=== PATIENT | female | born 1995 | race Caucasian/White ===

== ENCOUNTER 2021-03-12 12:00 | Outpatient (RCR) | payer BC, SELFPAY ==
--- NOTE | 2021-03-05 14:30 | HP.PTEVAL ---
Patient's Visit Information LISA OREILLY is a 25 year old F referred to Physical Therapy by DAYAMI Cruz with a diagnosis of mechanical LBP. Date of Evaluation: 03/05/21 Physical Therapist: ROSITA Roberts - Visit Plan Frequency: 1-2x /Week Duration: 6 Weeks Plan: 1-2X/ week for 6 weeks for centralization of symptoms. postural exercises, core stability program with HEP. HEP: press ups with patient sag, PT with abd brace and hip add - Subjective Pt has had back pain for years and remembers it all through college for at least 5 years. The back pain is still there with working out. This summer her pain has been noticably worse and last week was the worst. Getting out of bed would hurt and rolling over in back it would hurt. She has had shooting pain down his R leg this last week. She has just gotten off a steroid pack and it is better. She is also on [id number] and muscle relaxors and they did not help. Her pain is very low on her back and more on the R side. It is a sharp pain in middle of back and just muscle soreness. She sits at work and only works 4-6 hours at a time. 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 It seems to be worse with standing... sitting she will have random pain but mostly with transitions. She points to more sacral pain. She has some tingling twice (did not last long). She does not feel weakness. Pain keeps her up sometimes. Heat helps the soreness. Laying flat on the floor. SHe was doing Yoga to help with core strength and did not notice much of a difference. - Pain LBP Pain Intensity (Out of 10): 1 Pain Intensity Range: 6 - Objective Trunk AROM: flex 100%, EXT 75%, SB B 75%, ROT B 75%. Patella DTR's 2+/3 B. LE MMT: B hip flex 4-/5, B hip abd 4-/5, B knee flex 4-/5, B knee ext 4-/5, bridge ( increase pain and able to do 1/2 normal ROM bridge). Pt is able to walk on heels and toes. Prone Press ups 3 X 10 (pt had less stiffness in her back)... Pt had tenderness on the R side of her LB at approx L4/L5 with rotation mobs. Pt was able instructed in PT with abd bracing - Balance/Special Test Scores Oswestry Low Back Score: 9 - Goals Goal 1:: I HEP/neutral spine core stability program Goal Time Frame: 6-8 Weeks Goal 2:: Sit with upright posture during treatment sessions Goal Time Frame: 4-6 Weeks Goal 3:: Be able to complete ADL's in sitting and standing without increase back pain Goal Time Frame: 6-8 Weeks Goal 4:: Increase overall LE muscle strength (at time of eval: LE MMT: B hip flex 4-/5, B hip abd 4-/5, B knee flex 4-/5, B knee ext 4-/5, bridge ( increase pain and able to do 1/2 normal ROM bridge) Goal Time Frame: 6-8 Weeks - Rehabilitation Potential Rehabilitation Potential: Good - Anticipated Interventions Patient/Client Instruction: Educate patient on: Condition, Plan of Care For the Purpose of:: To decrease pain, To increase ROM, To improve nutrient delivery to tissue, To improve muscle performance and motor function, To improve ability to perform ADL's, To increase tolerance to activity/condition/position, To improve ability of physical actions for home/community/work/leisure, To improve gait and locomotor functions, To improve health of tissue, To decrease soft tissue restriction, To increase flexibility/ROM Therapeutic Exercise to Include: Strength training, Endurance training, Postural training, Flexibilty training, Gait and locomotor training, Neuromotor development, Passive ROM, Active ROM, Dynamic Lumbar Stabilization, Scapular Strength/Stabilization For the Purpose of:: To decrease pain, To increase ROM, To improve nutrient delivery to tissue, To improve muscle performance and motor function, To improve ability to perform ADL's, To increase tolerance to activity/condition/position, To improve performance and independence with ADL's, To improve ability of physical actions for home/community/work/leisure, To improve gait and locomotor functions, To improve health of tissue, To decrease soft tissue restriction, To increase flexibility/ROM, To improve balance, To improve health and function Manual Therapy Techniques to Include: Mobilization, Passive ROM, Soft tissue mobilization For the Purpose of:: To decrease pain, To increase ROM, To improve nutrient delivery to tissue, To improve muscle performance and motor function, To improve ability to perform ADL's, To increase tolerance to activity/condition/position, To improve ability of physical actions for home/community/work/leisure, To improve gait and locomotor functions, To decrease soft tissue restriction, To increase flexibility/ROM, To improve balance, To prevent re-injury IF ES: Yes Cryotherapy (ice pack, ice massage): Yes Thermo therapy (hot pack): Yes Ultrasound (thermal/non thermal): Yes For the Purpose of:: To decrease pain, To increase ROM, To improve nutrient delivery to tissue Thank you for the opportunity to evaluate your patient. For Medicare and Medicare HMO plans, please review the plan of care and approve it. It will need to be FAXED BACK to us at [phone] for Medicare purposes. For Medicare only, by signing this I certify the plan of care. Please let me know if there are questions or concerns regarding this plan of care. Physician Signature: Date:
--- NOTE | 2021-07-02 13:00 | HP.PTDCNRP_ITS ---
LISA OREILLY was seen in my office for initial evaluation on 03/05/21. The following Plan of Care was established for this patient: Initial Frequency: 1-2x /Week Initial Duration: 6 Weeks Patient/Client Instruction: Educate patient on: Condition, Plan of Care For the Purpose of:: To decrease pain, To increase ROM, To improve nutrient delivery to tissue, To improve muscle performance and motor function, To improve ability to perform ADL's, To increase tolerance to activity/condition/position, To improve ability of physical actions for home/community/work/leisure, To improve gait and locomotor functions, To improve health of tissue, To decrease soft tissue restriction, To increase flexibility/ROM Therapeutic Exercise to Include: Strength training, Endurance training, Postural training, Flexibilty training, Gait and locomotor training, Neuromotor development, Passive ROM, Active ROM, Dynamic Lumbar Stabilization, Scapular Strength/Stabilization For the Purpose of:: To decrease pain, To increase ROM, To improve nutrient delivery to tissue, To improve muscle performance and motor function, To improve ability to perform ADL's, To increase tolerance to activity/condition/position, To improve performance and independence with ADL's, To improve ability of physical actions for home/community/work/leisure, To improve gait and locomotor functions, To improve health of tissue, To decrease soft tissue restriction, To increase flexibility/ROM, To improve balance, To improve health and function Manual Therapy Techniques to Include: Mobilization, Passive ROM, Soft tissue mobilization For the Purpose of:: To decrease pain, To increase ROM, To improve nutrient delivery to tissue, To improve muscle performance and motor function, To improve ability to perform ADL's, To increase tolerance to activity/condition/position, To improve ability of physical actions for home/community/work/leisure, To improve gait and locomotor functions, To decrease soft tissue restriction, To increase flexibility/ROM, To improve balance, To prevent re-injury IF ES: Yes Cryotherapy (ice pack, ice massage): Yes Thermo therapy (hot pack): Yes Ultrasound (thermal/non thermal): Yes For the Purpose of:: To decrease pain, To increase ROM, To improve nutrient de livery to tissue This patient was last seen in our office 03/12/21. Pertinent comments regarding their Physical therapy will appear below: Pt was to call in at 2 week radha and let us know if she felt she needed to come back or that her exercises were doing her some good. Pt did not call back and will be discharged at this time. At this point I will be discontinuing this patient from physical therapy. I would be happy to see this patient again in the future if found appropriate by the physician. Thank you! Cindy Velez, ROSITA Balance/Gait/Functional tests - Balance/Special Test Scores Oswestry Low Back Score: 9
== END 2021-03-12 19:00 | disposition home or self-care (01) ==
LOC: PT 12:00
PROVIDERS: Referring Provider Nurse Practitioner; Visit Provider Nurse Practitioner
DX: M54.5 Low back pain (principal)
CPT/HCPCS: 97110; 97161

== ENCOUNTER → 2022-06-09 | Outpatient (CLI) | payer BC, SELFPAY ==
[2022-06-09 08:38] LABS: Absolute Lymphocyte Count 2.66 X10^3/uL (0.83-4.51); Absolute Neutrophil Count 2.3 X10^3/uL (2.0-7.7); Basophil# 0.05 X10^3/uL; Basophil% 0.9 % (0-1); Eosinophil# 0.17 X10^3/uL; Hematocrit 41.5 % (37-47); Hemoglobin 13.5 g/dL (12.0-15.0); Lymphocyte # 2.66 X10^3/ul (0.83-4.51); Lymphocyte % 47.1 % (19-41); Mean Corp Hgb Conc 32.5 g/dL (32-36); Mean Corpuscular Hgb 27.2 pg (27.0-32.0); Mean Corpuscular Volume 83.5 fL (81-99); Mean Platelet Vol. 10.5 fl (6.2-12.0); Monocyte% 8.8 % (0-10); NRBC Flagged by Analyzer 0 % (0-5); Neutrophil # 2.26 X10^3/uL (2.7-7.7); Platelet Count 265 K/mm3 (150-450); RBC Distribution Width CV 13.1 % (11.6-14.6); RBC Distribution Width SD 39.5 fl (35.1-43.9); Red Blood Count 4.97 M/mm3 (4.2-5.4); White Blood Count 5.7 K/mm3 (4.4-11.0)
[2022-06-09 09:32] LABS: Vitamin D,25 Hydroxy 22.3 ng/mL
[2022-06-09 11:12] LABS: Estradiol 107.9 pg/mL; T4 Free Direct 0.96 ng/dL (0.76-1.46); Thyroid Stim Hormone (TSH) 7.61 uIU/mL (0.358-3.74)
[2022-06-13 15:06] LABS: Testosterone Free 1.3 pg/mL (0.0-4.2)
== END | disposition home or self-care (01) ==
LOC: PAVLAB 08:23
PROVIDERS: Referring Provider Nurse Practitioner Women's Health; Visit Provider Nurse Practitioner Women's Health
DX: Z13.21 Encounter for screening for nutritional disorder (principal); F52.0 Hypoactive sexual desire disorder; R53.83 Other fatigue
CPT/HCPCS: 36415; 82306; 82627; 82670; 84402; 84439; 84443; 85025; 82626